=== PATIENT | female | born 2000 | race Caucasian/White ===

== ENCOUNTER 2024-08-15 12:34 | Emergency (ER) | payer OTHER | END 2024-08-15 14:00 | disposition home or self-care (01) | LOC: JD.ED 12:34 | DX: S70.11XA Contusion of right thigh, initial encounter (principal); S80.12XA Contusion of left lower leg, initial encounter; W19.XXXA Unspecified fall, initial encounter | CPT/HCPCS: 73552-26-RT; 73552-RT; 73590-26-LT; 73590-LT; 99283 ==